=== PATIENT | female | born 2000 | race Caucasian/White ===

== ENCOUNTER 2022-05-01 10:25 | Emergency (ER) | payer OTHER, MEDICAID ==
[~2022-05-01] VITALS: Ht 170 cm; Wt 99.0 kg
[2022-05-01 11:42] LABS: BASOPHILS % (AUTO) 0 % (0-10); EOSINOPHILS # (AUTO) 0.1 10^3/uL (0.0-0.3); EOSINOPHILS % (AUTO) 1 % (0-10); HEMATOCRIT 34 % (35-52); HEMOGLOBIN 11.5 g/dL (11.5-16.0); LYMPHOCYTES # (AUTO) 1.5 10^3/uL (1.0-4.0); LYMPHOCYTES % (AUTO) 15 % (12-44); MEAN CORPUSCULAR HEMOGLOBIN 29 pg (25-34); MEAN CORPUSCULAR HGB CONC 34 g/dL (32-36); MEAN CORPUSCULAR VOLUME 85 fL (80-99); MEAN PLATELET VOLUME 11.1 fL (9.0-12.2); MONOCYTES # (AUTO) 0.7 10^3/uL (0.0-1.0); MONOCYTES % (AUTO) 7 % (0-12); NEUTROPHILS # (AUTO) 7.3 10^3/uL (1.8-7.8); NEUTROPHILS % (AUTO) 75 % (42-75); PLATELET COUNT 216 10^3/uL (130-400); WHITE BLOOD COUNT 9.7 10^3/uL (4.3-11.0)
--- NOTE | 2022-05-01 11:44 | ED Syncope ---
General Chief Complaint: OB > 20 WEEKS Stated Complaint: DIZZY - BLURRY VISION - HOT FLASHES - 27 WKS PREG Source of Information: Patient Exam Limitations: No Limitations History of Present Illness Date Seen by Provider: May 01, 2022 Time Seen by Provider: 11:20 Initial Comments Patient to the ER by private conveyance from [employer] where she works on her feet. She is [address] Cedeno in [place]. She says she was standing there working and all of a sudden she felt a series of hot flashes, on and so she sat down because she felt like she is going to pass out. She still feels a little short of breath even while at rest. Says she nearly passed out. She says this happened before when she was with her previous child. She is not having dysuria, cough, fevers chills diarrhea nausea vomiting chest pain. She does have a history of asthma but that has not been bothering her lately. Allergies and Home Medications Allergies Coded Allergies: No Known Drug Allergies (Unverified , 05/01/22) Patient Home Medication List Home Medication List Reviewed: Yes Review of Systems Constitutional: No chills; dizziness; No fever, No malaise EENTM: No ear discharge, No ear pain Respiratory: No cough; short of breath Cardiovascular: No chest pain Gastrointestinal: No abdominal pain, No constipation, No diarrhea Genitourinary: No discharge, No dysuria : Yes Control/STD Prophylaxis: None Musculoskeletal: No back pain, No joint pain All Other Systems Reviewed Negative Unless Noted: Yes Past Gijghxy-Zurxzs-Jyxkba Hx Patient Social History Tobacco Use?: No Use of E-Cig and/or Vaping dev: No Substance use?: No Alcohol Use?: No Immunizations Up To Date First/Initial COVID19 Vaccinat: 12/2020 Physical Exam Vital Signs Vital Signs - First Documented 05/01/22 05/01/22 05/01/22 11:29 12:32 13:56 Temp 36.6 Pulse 103 Resp 18 B/P (MAP) 106/66 (79) 110/67 (81) 98/65 (76) O2 Delivery Room Air Capillary Refill : Height, Weight, BMI Height: '" Weight: lbs. oz. kg; BMI Method: General Appearance: No Apparent Distress, WD/WN HEENT: PERRL/EOMI, Pharynx Normal, Moist Mucous Membranes Neck: Full Range of Motion, Normal Inspection, Non Tender Cardiovascular: Regular Rate, Rhythm, No Edema, Normal Peripheral Pulses Respiratory: Chest Non Tender, Lungs Clear, Normal Breath Sounds, No Accessory Muscle Use, No Respiratory Distress Gastrointestinal: Normal Bowel Sounds, Non Tender, Soft Extremities: Normal Capillary Refill, Normal Inspection, Normal Range of Motion, No Pedal Edema Neurologic/Psychiatric: Alert, Oriented x3, No Motor/Sensory Deficits, Normal Mood/Affect Cranial Nerves: Normal Hearing, Normal Speech, PERRL Progress/Results/Core Measures Results/Orders Lab Results Laboratory Tests Test 05/01/22 11:25 05/01/22 12:18 05/01/22 12:22 Range/Units White Blood Count 9.7 4.3-11.0 10^3/uL Red Blood Count 3.98 3.80-5.11 10^6/uL Hemoglobin 11.5 11.5-16.0 g/dL Hematocrit 34 L 35-52 % Mean Corpuscular Volume 85 80-99 fL Mean Corpuscular Hemoglobin 29 25-34 pg Mean Corpuscular Hemoglobin Concent 34 32-36 g/dL Red Cell Distribution Width 13.2 10.0-14.5 % Platelet Count 216 130-400 10^3/uL Mean Platelet Volume 11.1 9.0-12.2 fL Immature Granulocyte % (Auto) 2 % Neutrophils (%) (Auto) 75 42-75 % Lymphocytes (%) (Auto) 15 12-44 % Monocytes (%) (Auto) 7 0-12 % Eosinophils (%) (Auto) 1 0-10 % Basophils (%) (Auto) 0 0-10 % Neutrophils # (Auto) 7.3 1.8-7.8 10^3/uL Lymphocytes # (Auto) 1.5 1.0-4.0 10^3/uL Monocytes # (Auto) 0.7 0.0-1.0 10^3/uL Eosinophils # (Auto) 0.1 0.0-0.3 10^3/uL Basophils # (Auto) 0.0 0.0-0.1 10^3/uL Immature Granulocyte # (Auto) 0.2 H 0.0-0.1 10^3/uL Sodium Level 138 135-145 MMOL/L Potassium Level 3.9 3.6-5.0 MMOL/L Chloride Level 105 98-107 MMOL/L Carbon Dioxide Level 24 21-32 MMOL/L Anion Gap 9 5-14 MMOL/L Blood Urea Nitrogen 11 7-18 MG/DL Creatinine 0.60 0.60-1.30 MG/DL Estimat Glomerular Filtration Rate 129 BUN/Creatinine Ratio 18 Glucose Level 92 70-105 MG/DL Calcium Level 9.2 8.5-10.1 MG/DL Corrected Calcium 9.5 8.5-10.1 MG/DL Total Bilirubin 0.2 0.1-1.0 MG/DL Aspartate Amino Transf (AST/SGOT) 10 5-34 U/L Alanine Aminotransferase (ALT/SGPT) 13 0-55 U/L Alkaline Phosphatase 59 40-136 U/L Troponin I < 0.028 <0.028 NG/ML Total Protein 6.8 6.4-8.2 GM/DL Albumin 3.6 3.2-4.5 GM/DL Urine Color YELLOW Urine Clarity CLEAR Urine pH 6.0 5-9 Urine Specific [place] >=1.030 1.016-1.022 Urine Protein TRACE H NEGATIVE Urine Glucose (UA) NEGATIVE NEGATIVE Urine Ketones NEGATIVE NEGATIVE Urine Nitrite NEGATIVE NEGATIVE Urine Bilirubin NEGATIVE NEGATIVE Urine Urobilinogen 1.0 < = 1.0 MG/DL Urine Leukocyte Esterase 2+ H NEGATIVE Urine RBC (Auto) NEGATIVE NEGATIVE Urine RBC NONE /HPF Urine WBC 10-25 H /HPF Urine Squamous Epithelial Cells 10-25 H /HPF Urine Crystals PRESENT H /LPF Urine Calcium Oxalate Crystals FEW H /LPF Urine Bacteria LARGE H /HPF Urine Casts NONE /LPF Urine Mucus MODERATE H /LPF Urine Culture Indicated YES Glucometer 80 70-110 MG/DL My Orders Orders - KATIE,VICKI J Orthostatic Vital Signs (Adult (05/01/22 11:32) Cbc With Automated Diff (05/01/22 11:32) Comprehensive Metabolic Panel (05/01/22 11:32) Ua Culture If Indicated (05/01/22 11:32) Continuous Ekg Monitoring (05/01/22 11:32) Ekg Tracing (05/01/22 11:32) Accucheck Stat ONCE (05/01/22 11:32) Troponin I Agustin (05/01/22 11:44) Ed Iv/Invasive Line Start (05/01/22 12:40) Lactated Ringers (Lr 1000 Ml Iv Solution (05/01/22 12:45) Urine Culture (05/01/22 12:18) Medications Given in ED Current Medications Medications Dose Ordered Sig/Kaden Route Start Time Stop Time Status Last Admin Dose Admin Lactated Ringer's 1,000 ml @ 0 mls/hr Q0M ONCE IV 05/01/22 12:45 05/01/22 12:46 DC 05/01/22 12:48 999 MLS/HR Vital Signs/I&O 05/01/22 05/01/22 05/01/22 11:29 12:32 13:56 Temp 36.6 36.3 Pulse 103 102 85 101 117 Resp 18 18 B/P (MAP) 106/66 (79) 107/64 110/67 (81) 98/65 (76) O2 Delivery Room Air Progress Progress Note #1: Time: 11:44 Progress Note Well-appearing, likely vasovagal syncope/near syncope. Going to check some labs. She is drinking fluids by mouth. Check some urine and do some orthostats and EKG. Progress Note #2: Time: 13:15 Progress Note Contaminated urine. Borderline orthostats so we started a liter of fluids. Left voicemail with Dr. Krishnamurthy, OB. Initial ECG Impression Date: May 01, 2022 Initial ECG Impression Time: 12:26 Initial ECG Rate: 97 Initial ECG Rhythm: Normal Sinus Initial ECG Intervals: Normal Initial ECG Impression: Normal Initial ECG Comparisson: No Previous ECG Available Comment Normal sinus rhythm without clinically relevant ST elevation or depression. Consults : Consulting Physician: LEAH RAYGOZA MD Consults Notes Discussed case with Dr. Raygoza who agrees to take her up and monitor her on third floor. Assuming she sees a good category 1 strip then she can go home and follow-up outpatient. Departure Impression Primary Impression: Vasovagal syncope Additional Impression: Dehydration Disposition: 01 HOME, SELF-CARE Condition: Stable Departure-Patient Inst. Decision time for Depature: 13:18 Referrals: [facility] (PCP/Family) Primary Care Physician Patient Instructions: Syncope (Fainting) (DC), Vasovagal Response (DC) Add. Discharge Instructions: Make sure you are drinking plenty of fluids. Follow-up with your OB provider. All discharge instructions reviewed with patient and/or family. Voiced understanding. Work/School Note: Work Release Form Date Seen in the Emergency Department: May 01, 2022 Return to Work: May 02, 2022 Restrictions: No Restrictions VICKI WILSON May 01, 2022 11:44
[2022-05-01 12:02] LABS: ALBUMIN 3.6 GM/DL (3.2-4.5); BILIRUBIN,TOTAL 0.2 MG/DL (0.1-1.0); CALCIUM 9.2 MG/DL (8.5-10.1); CREATININE SERUM 0.6 MG/DL (0.60-1.30); POTASSIUM 3.9 MMOL/L (3.6-5.0); TOTAL PROTEIN 6.8 GM/DL (6.4-8.2)
[2022-05-01 12:25] LABS: BILIRUBIN,URINE NEGATIVE (NEGATIVE); CLARITY,URINE CLEAR; COLOR,URINE YELLOW; GLUCOSE, URINE (UA) NEGATIVE (NEGATIVE); KETONES,URINE NEGATIVE (NEGATIVE); LEUKOCYTE ESTERASE ,URINE 2+ (NEGATIVE); NITRITE,URINE NEGATIVE (NEGATIVE); PROTEIN,URINE TRACE (NEGATIVE)
[2022-05-01 12:32] VITALS: BP_SYST 106; BP_SYST 110; BP_SYST 98; BP_DIAS 65; BP_DIAS 66; BP_DIAS 67
[2022-05-01 12:41] LABS: BACTERIA,URINE LARGE /HPF; CALCIUM OXALATE CRYSTALS,UR FEW /LPF
[2022-05-01] MEDS ORDERED: LACTATED RINGERS 1,000 ML IV ONE (12:45)
[2022-05-01] MEDS ORDERED: PREN1TAB79 PO (15:35)
== END 2022-05-01 14:50 | disposition home or self-care (01) ==
LOC: ER 10:28
DX: O99.282 Endocrine, nutritional and metabolic diseases complicating pregnancy, second trimester (principal); E86.0 Dehydration; O26.892 Other specified pregnancy related conditions, second trimester; R55 Syncope and collapse; Z3A.27 27 weeks gestation of pregnancy
CPT/HCPCS: 36415; 80053; 81000; 82947; 84484; 85025; 87077; 87088; 93005

== ENCOUNTER 2022-05-01 15:21 | Outpatient (CLI) | payer OTHER, MEDICAID ==
[~2022-05-01] VITALS: Ht 167.6 cm; Wt 100.9 kg
[2022-05-01 15:10] VITALS: BP 108/52
[2022-05-01] MEDS ORDERED: PREN1TAB79 PO (15:35)
[2022-05-01 15:49] VITALS: BP 108/52
[2022-05-01 16:15] VITALS: BP 108/52
--- NOTE | 2022-05-02 08:31 | Physician Query-Final Dx ---
ABIOLA,05/02/2231: Clinic Account Progress/Dx Physician Query: Please give diagnosis Please include # weeks gestation Date of Service May 01, 2022 at 15:21 TATIANA SILVER MD 05/03/222047: Clinic Account Progress/Dx DIAGNOSIS: Diagnosis Third Trimester 27 week gestation ,NovMay 02, 2022 08:31 TATIANA SILVER MD May 03, 2022 20:48
== END 2022-05-01 16:15 | disposition home or self-care (01) ==
LOC: WSo 15:21
PROVIDERS: ATTEND Family Medicine
DX: Z34.92 Encounter for supervision of normal pregnancy, unspecified, second trimester (principal); Z3A.27 27 weeks gestation of pregnancy
CPT/HCPCS: 99212

== ENCOUNTER 2022-11-28 17:59 | Emergency (ER) | payer OTHER, MEDICAID ==
[~2022-11-28] VITALS: Ht 167 cm; Wt 97.5 kg
[~2022-11-28 17:59] MED LIST: PREN1TAB79 PO
[2022-11-28 18:45] LABS: BASOPHILS % (AUTO) 1 % (0-10); EOSINOPHILS # (AUTO) 0.3 10^3/uL (0.0-0.3); EOSINOPHILS % (AUTO) 3 % (0-10); HEMATOCRIT 40 % (35-52); HEMOGLOBIN 13.2 g/dL (11.5-16.0); LYMPHOCYTES # (AUTO) 2.9 10^3/uL (1.0-4.0); LYMPHOCYTES % (AUTO) 36 % (12-44); MEAN CORPUSCULAR HEMOGLOBIN 27 pg (25-34); MEAN CORPUSCULAR HGB CONC 33 g/dL (32-36); MEAN CORPUSCULAR VOLUME 81 fL (80-99); MEAN PLATELET VOLUME 10.9 fL (9.0-12.2); MONOCYTES # (AUTO) 0.6 10^3/uL (0.0-1.0); MONOCYTES % (AUTO) 8 % (0-12); NEUTROPHILS # (AUTO) 4.3 10^3/uL (1.8-7.8); NEUTROPHILS % (AUTO) 53 % (42-75); PLATELET COUNT 240 10^3/uL (130-400); WHITE BLOOD COUNT 8.2 10^3/uL (4.3-11.0)
[2022-11-28 18:57] LABS: ALBUMIN 4.4 GM/DL (3.2-4.5); BILIRUBIN,TOTAL 0.3 MG/DL (0.1-1.0); CALCIUM 9.4 MG/DL (8.5-10.1); CREATININE SERUM 0.8 MG/DL (0.60-1.30); POTASSIUM 3.5 MMOL/L (3.6-5.0)
[2022-11-28] MEDS ORDERED: IOHEXOL 350 MG/ML 100 ML (OMNIPAQUE 350) VIAL IV ONE (19:15)
[2022-11-28] MEDS ORDERED: HOLD METFORMIN - RECEIVED CONTRAST 20 ML VIAL IV SCH (19:15)
[2022-11-28] MEDS ORDERED: NS 100 ML (IVPB) BAG IV ONE (19:15)
[2022-11-28 19:25] LABS: BILIRUBIN,URINE NEGATIVE (NEGATIVE); CLARITY,URINE CLEAR; COLOR,URINE YELLOW; GLUCOSE, URINE (UA) NEGATIVE (NEGATIVE); KETONES,URINE NEGATIVE (NEGATIVE); LEUKOCYTE ESTERASE ,URINE TRACE (NEGATIVE); NITRITE,URINE NEGATIVE (NEGATIVE); PH,URINE 5.5 (5-9); PROTEIN,URINE NEGATIVE (NEGATIVE)
[2022-11-28 19:45] LABS: BACTERIA,URINE MODERATE /HPF
--- NOTE | 2022-11-28 19:51 | Diagnostic Imaging Report ---
PROCEDURE: CT abdomen and pelvis with contrast, rule out appendicitis. TECHNIQUE: Multiple contiguous axial images were obtained through the abdomen and pelvis after the administration of intravenous contrast. All CT scans use one or more of the following dose optimizing techniques: automated exposure control, MA and/or KvP adjustment based on patient size and exam type or iterative reconstruction. INDICATION: Abdominal pain COMPARISON: None available. FINDINGS: The visualized lung bases are clear. Diffusely decreased density of the liver. The liver is otherwise unremarkable. The spleen is unremarkable. Calcified granuloma within the left lower lobe. The adrenal glands are unremarkable. The pancreas is unremarkable. The gallbladder is unremarkable. Early excretion of contrast is noted within the bilateral kidneys. No hydroureteronephrosis. No aneurysmal dilatation of the abdominal aorta. Tiny fat-containing umbilical hernia. The appendix is unremarkable. Mild mural thickening of the urinary bladder, though the urinary bladder is not well-distended. The uterus and adnexal structures are unremarkable for age. No bowel obstruction or pneumatosis. No significant adenopathy, free air, or free fluid within the abdomen or pelvis. No acute osseous abnormality. IMPRESSION: Cystitis versus poor distention of the urinary bladder. Recommend correlation with urinary analysis. The appendix is unremarkable. Mild fatty infiltration of the liver. Dictated by: Dictated on workstation # [id number]
--- NOTE | 2022-11-28 20:08 | ED Abdominal Pain ---
General Chief Complaint: Abdominal/GI Problems Stated Complaint: ABD PAIN,SHAKINESS Nursing Triage Note: PT PRESENTS TO ED VIA POV FROM HOME WITH COMPLAINTS OF CENTRAL ADOMINAL PAIN X 4-5 DAYS. PT ALSO REPORTS CONGESTION AND DIARRHEA AND NAUSEA. Source of Information: Patient History of Present Illness Date Seen by Provider: Nov 28, 2022 Time Seen by Provider: 18:36 Initial Comments PT ARRIVES VIA POV FROM HOME C/O GENERALIZED ABDOMINAL PAIN THAT COMES AND GOES. PAIN IS NOT PRESENT NOW C/O DIARRHEA OFF AND ONE. HAD 1 EPISODE OF DIARRHEA THIS AM. NO BLACK/BLOODY/TARRY STOOLS MILD NAUSEA, NO VOMITING. NO NAUSEA NOW FEELS A LITTLE LIGHTHEADED AT TIMES, NOT NOW. 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 LMP 08/2022 PT DELIVERED 08/01/22 VIA , NO COMPLICATIONS STARTED ON OCP'S IN AUGUST AND IS PT IS NO CHRONIC MEDICAL PROBLEMS NO PRIOR ABDOMINAL SURGERIES OR GI OR PROBLEMS SYMPTOMS ARE NO DIFFERENT TODAY HAS NOT SOUGHT CARE UNTIL TODAY HAS NOT TAKEN ANYTHING FOR SYMPTOMS PCP: [facility] RIPSAW GRADER: KENYATTA FLORES Allergies and Home Medications Allergies Coded Allergies: No Known Drug Allergies (Unverified , 05/01/22) Patient Home Medication List Home Medication List Reviewed: Yes Ketorolac Tromethamine (Ketorolac Tromethamine) 10 Mg Tablet, 10 MG PO Q6H Prescribed by: MARY SEBASTIAN on 11/28/222013 Nitrofurantoin Monohyd/M-Cryst (Macrobid 100 mg Capsule) 100 Mg Capsule, 1 TAB PO BID Prescribed by: MARY SEBASTIAN on 11/28/222013 Ondansetron (Ondansetron Odt) 4 Mg Tab.rapdis, 4 MG PO Q4H Prescribed by: MARY SEBASTIAN on 11/28/222013 Vit W-Ca,Fe,FA(<1 mg) ( Vitamins) 27 Mg Iron-800 Mcg Tablet, 1 EACH PO DAILY, (Reported) Entered as Reported by: YANCY MELENDREZ on 05/01/22 1535 Review of Systems Review of Systems Constitutional: see HPI; No chills, No diaphoresis; dizziness; No fever EENTM: No Symptoms Reported Respiratory: No Symptoms Reported Cardiovascular: No Symptoms Reported Gastrointestinal: See HPI, Abdominal Pain, Diarrhea, Nausea; Denies Poor Appetite, Denies Vomiting Genitourinary: See HPI Musculoskeletal: no symptoms reported Skin: no symptoms reported Psychiatric/Neurological: No Symptoms Reported Endocrine: No Symptoms Reported Hematologic/Lymphatic: No Symptoms Reported Past Ffsquek-Dcqivo-Cnsrmb Hx Patient Social History Tobacco Use?: No Smokeless Tobacco Frequency: Never a User Use of E-Cig and/or Vaping dev: No Substance use?: No Alcohol Use?: Yes Alcohol Frequency: Rarely Pt feels they are or have been: No Immunizations Up To Date First/Initial COVID19 Vaccinat: 12/2020 Second COVID19 Vaccination Jean-Claude: 12/2020 Third COVID19 Vaccination Date: 12/2020 Past Medical History 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 oz. kg; 34.00 BMI Method: General Appearance: WD/WN, no apparent distress, obese, other (SITTING BULGARIAN- STYLE; WALKS UPRIGHT AND MOVES QUICKLY WITHOUT DIFFICULTY. DOES NOT APPEAR TO BE IN ANY DISCOMFORT OR DISTRESS. 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, no motor/sensory deficits, alert, normal mood/affect, oriented x 3 Skin: normal color, warm/dry, tattoos/piercings (MULTIPLE TATTOOS) Progress/Results/Core Measures Results/Orders Lab Results Laboratory Tests Test 11/28/22 18:32 11/28/22 19:15 Range/Units White Blood Count 8.2 4.3-11.0 10^3/uL Red Blood Count 4.86 3.80-5.11 10^6/uL Hemoglobin 13.2 11.5-16.0 g/dL Hematocrit 40 35-52 % Mean Corpuscular Volume 81 80-99 fL Mean Corpuscular Hemoglobin 27 25-34 pg Mean Corpuscular Hemoglobin Concent 33 32-36 g/dL Red Cell Distribution Width 12.6 10.0-14.5 % Platelet Count 240 130-400 10^3/uL Mean Platelet Volume 10.9 9.0-12.2 fL Immature Granulocyte % (Auto) 1 % Neutrophils (%) (Auto) 53 42-75 % Lymphocytes (%) (Auto) 36 12-44 % Monocytes (%) (Auto) 8 0-12 % Eosinophils (%) (Auto) 3 0-10 % Basophils (%) (Auto) 1 0-10 % Neutrophils # (Auto) 4.3 1.8-7.8 10^3/uL Lymphocytes # (Auto) 2.9 1.0-4.0 10^3/uL Monocytes # (Auto) 0.6 0.0-1.0 10^3/uL Eosinophils # (Auto) 0.3 0.0-0.3 10^3/uL Basophils # (Auto) 0.0 0.0-0.1 10^3/uL Immature Granulocyte # (Auto) 0.0 0.0-0.1 10^3/uL Sodium Level 142 135-145 MMOL/L Potassium Level 3.5 L 3.6-5.0 MMOL/L Chloride Level 109 H 98-107 MMOL/L Carbon Dioxide Level 23 21-32 MMOL/L Anion Gap 10 5-14 MMOL/L Blood Urea Nitrogen 18 7-18 MG/DL Creatinine 0.80 0.60-1.30 MG/DL Estimat Glomerular Filtration Rate 106 BUN/Creatinine Ratio 23 Glucose Level 95 70-105 MG/DL Calcium Level 9.4 8.5-10.1 MG/DL Corrected Calcium 9.1 8.5-10.1 MG/DL Total Bilirubin 0.3 0.1-1.0 MG/DL Aspartate Amino Transf (AST/SGOT) 18 5-34 U/L Alanine Aminotransferase (ALT/SGPT) 33 0-55 U/L Alkaline Phosphatase 81 40-136 U/L Total Protein 8.0 6.4-8.2 GM/DL Albumin 4.4 3.2-4.5 GM/DL Amylase Level 51 25-125 U/L Lipase 31 8-78 U/L Urine Color YELLOW Urine Clarity CLEAR Urine pH 5.5 5-9 Urine Specific [place] >=1.030 1.016-1.022 Urine Protein NEGATIVE NEGATIVE Urine Glucose (UA) NEGATIVE NEGATIVE Urine Ketones NEGATIVE NEGATIVE Urine Nitrite NEGATIVE NEGATIVE Urine Bilirubin NEGATIVE NEGATIVE Urine Urobilinogen 0.2 < = 1.0 MG/DL Urine Leukocyte Esterase TRACE H NEGATIVE Urine RBC (Auto) NEGATIVE NEGATIVE Urine RBC 2-5 H /HPF Urine WBC 5-10 H /HPF Urine Squamous Epithelial Cells 5-10 /HPF Urine Crystals NONE /LPF Urine Bacteria MODERATE H /HPF Urine Casts NONE /LPF Urine Mucus SMALL H /LPF Urine Culture Indicated YES My Orders Orders - MARY SEBASTIAN DO Ed Iv/Invasive Line Start (11/28/22 18:37) Urine Bedside (11/28/22 18:37) Amylase (11/28/22 18:37) Cbc With Automated Diff (11/28/22 18:37) Comprehensive Metabolic Panel (11/28/22 18:37) Lipase (11/28/22 18:37) Ua Culture If Indicated (11/28/22 18:37) Ct Abd/Pelv W (Appendicitis) (11/28/22 19:07) Iohexol Injection (Omnipaque 350 Mg/Ml 1 (11/28/22 19:15) Received Contrast (Hold Metformin- Contr (11/28/22 19:15) Ns (Ivpb) (Sodium Chloride 0.9% Ivpb Bag (11/28/22 19:15) Urine Culture (11/28/22 19:15) Ketorolac Injection (Toradol Injection) (11/28/22 20:15) Ceftriaxone 1 Gm Pre-Mix (Rocephin 1 Gm (11/28/22 20:15) Medications Given in ED Current Medications Medications Dose Ordered Sig/Kaden Route Start Time Stop Time Status Last Admin Dose Admin Ceftriaxone Sodium/Dextrose 50 ml @ 100 mls/hr ONCE ONCE IV 11/28/22 20:15 11/28/22 20:37 DC 11/28/22 20:26 100 MLS/HR Iohexol 100 ml ONCE ONCE IV 11/28/22 19:15 11/28/22 19:16 DC 11/28/22 19:32 80 ML Ketorolac Tromethamine 30 mg ONCE ONCE IVP 11/28/22 20:15 11/28/22 20:16 DC 11/28/22 20:25 30 MG Sodium Chloride 100 ml ONCE ONCE IV 11/28/22 19:15 11/28/22 19:16 DC 11/28/22 19:33 80 ML Vital Signs/I&O 11/28/22 11/28/22 18:09 20:29 Temp 36.7 Pulse 93 75 Resp 18 18 B/P (MAP) 124/78 (93) 122/84 Pulse Ox 96 99 Blood Pressure Mean: 93 Progress Progress Note : Progress Note UNEVENTFUL ER STAY PT HAD NO SYMPTOMS DURING ER STAY VITALS STABLE. GIVEN TORADOL AND ROCEPHIN REVIEWED ALL TEST RESULTS, SYMPTOMATIC TREATMENT, ANTICIPATED COURSE, NEED FOR FOLLOW UP AND RETURN PRECAUTIONS DISCUSSED WITH PT. Diagnostic Imaging Comments CT ABDOMEN/PELVIS--PER RADIOLOGIST REPORT AT 2007 FINDINGS: The visualized lung bases are clear. Diffusely decreased density of the liver. The liver is otherwise unremarkable. The spleen is unremarkable. Calcified granuloma within the left lower lobe. The adrenal glands are unremarkable. The pancreas is unremarkable. The gallbladder is unremarkable. Early excretion of contrast is noted within the bilateral kidneys. No hydroureteronephrosis. No aneurysmal dilatation of the abdominal aorta. Tiny fat-containing umbilical hernia. The appendix is unremarkable. Mild mural thickening of the urinary bladder, though the urinary bladder is not well-distended. The uterus and adnexal structures are unremarkable for age. No bowel obstruction or pneumatosis. No significant adenopathy, free air, or free fluid within the abdomen or pelvis. No acute osseous abnormality. IMPRESSION: Cystitis versus poor distention of the urinary bladder. Recommend correlation with urinary analysis. The appendix is unremarkable. Mild fatty infiltration of the liver. Reviewed: Reviewed by Me Departure Impression Primary Impression: Urinary tract infection Disposition: HOME, SELF-CARE Condition: Stable Departure-Patient Inst. Decision time for Depature: 20:10 Referrals: [facility] (PCP/Family) Primary Care Physician Patient Instructions: Urinary Tract Infection, Adult (DC) Add. Discharge Instructions: HOME, REST LOTS OF CLEAR LIQUIDS--WATER, BROTH, JELLO, GATORADE TOMORROW IF YOU ARE BETTER, ADD BRATS DIET TO CLEAR LIQUIDS--BANANAS, RICE, APPLESAUCE,TOAST, SALTINES FOLLOW UP WITH YOUR DR IN 2-3 DAYS IF NO BETTER, RETURN TO ER IF WORSE All discharge instructions reviewed with patient and/or family. Voiced understanding. Scripts Ketorolac Tromethamine (Ketorolac Tromethamine) 10 Mg Tablet 10 MG PO Q6H for Pain, #15 TAB Prov: MARY SEBASTIAN DO 11/28/22 Ondansetron (Ondansetron Odt) 4 Mg Tab.rapdis 4 MG PO Q4H for Nausea/Vomiting, #10 TAB Prov: MARY SEBASTIAN DO 11/28/22 Nitrofurantoin Monohyd/M-Cryst (Macrobid 100 mg Capsule) 100 Mg Capsule 1 TAB PO BID, #20 CAP Prov: MARY SEBASTIAN DO 11/28/22 MARY SEBASTIAN DO Nov 28, 2022 20:08
[2022-11-28] MEDS ORDERED: NITR-65 PO (20:14)
[2022-11-28] MEDS ORDERED: ONDA4TAB11 PO (20:14)
[2022-11-28] MEDS ORDERED: KETO10TA PO (20:14)
[2022-11-28] MEDS ORDERED: cefTRIAXone 1 GM PRE-MIX 50 ML IV ONE (20:15)
[2022-11-28] MEDS ORDERED: KETOROLAC 30 MG/ML VIAL IVP ONE (20:15)
[2022-11-28 20:29] VITALS: BP 122/84
== END 2022-11-28 20:37 | disposition home or self-care (01) ==
LOC: EDUNIT# 17:59 → ER 18:01
DX: N39.0 Urinary tract infection, site not specified (principal); E66.9 Obesity, unspecified; Z68.34 Body mass index [BMI] 34.0-34.9, adult
CPT/HCPCS: 36415; 74177; 80053; 81000; 82150; 83690; 84703; 85025; 87077; 87088; 87186

== ENCOUNTER 2022-12-14 02:35 | Emergency (ER) | payer OTHER, MEDICAID ==
[~2022-12-14] VITALS: Ht 168 cm; Wt 95.0 kg
[~2022-12-14 02:35] MED LIST changes: +KETO10TA PO; +NITR-65 PO; +ONDA4TAB11 PO
[2022-12-14] MEDS ORDERED: DROS4TAB (02:58)
[2022-12-14 03:16] LABS: BILIRUBIN,URINE NEGATIVE (NEGATIVE); CLARITY,URINE SL CLOUDY; COLOR,URINE YELLOW; GLUCOSE, URINE (UA) NEGATIVE (NEGATIVE); KETONES,URINE NEGATIVE (NEGATIVE); LEUKOCYTE ESTERASE ,URINE NEGATIVE (NEGATIVE); NITRITE,URINE NEGATIVE (NEGATIVE); PH,URINE 5.5 (5-9); PROTEIN,URINE NEGATIVE (NEGATIVE)
[2022-12-14 03:35] LABS: BACTERIA,URINE TRACE /HPF; WBC,URINE RARE /HPF
[2022-12-14 03:37] LABS: AMPHETAMINE SCREEN, URINE NEGATIVE (NEGATIVE); BARBITURATE SCREEN URINE NEGATIVE (NEGATIVE); BENZODIAZEPINES SCREEN URINE NEGATIVE (NEGATIVE); CANNABINOID SCREEN, URINE NEGATIVE (NEGATIVE); COCAINE SCREEN URINE NEGATIVE (NEGATIVE); METHADONE STAT NEGATIVE (NEGATIVE); OPIATE SCREEN URINE NEGATIVE (NEGATIVE); OXYCODONE STAT NEGATIVE (NEGATIVE); PROPOXYPHENE STAT NEGATIVE (NEGATIVE); TRICYCLIC ANTIDEPRESSANTS SCRE NEGATIVE (NEGATIVE)
--- NOTE | 2022-12-14 03:41 | ED General ---
General Chief Complaint: Abdominal/GI Problems Stated Complaint: CP,UPPER ABD PAIN Nursing Triage Note: epigastric pain, abdominal pain, diarrhea, sore throat. Source of Information: Patient, Old Records History of Present Illness Date Seen by Provider: Dec 14, 2022 Time Seen by Provider: 02:54 Initial Comments PT ARRIVES VIA POV FROM HOME C/O EPIGASTRIC PAIN AND MID CHEST PAIN SINCE 1999 THIS EVENING 12/13/22 C/O NAUSEA, NO VOMITING. HAD DIARRHEA X 1 TODAY HAS HAD "COLD CHILLS" BUT HAS NOT CHECKED TEMPERATURE. NO URINARY SYMPTOMS SHE HAS NOT TAKEN ANYTHING FOR THESE SYMPTOMS SHE LAST ATE AT 1830--PIZZA. BOYFRIEND AND CHILD ATE SAME AND THEY ARE NOT ILL. SHE HAS ALSO HAD COLD SYMPTOMS SINCE LAST Saturday12/07/22 -COUGH WITH GREEN SPUTUM -NASAL CONGESTION AND SINUS DRAINAGE -TEMP OF 99 -SORE THROAT. HER CHILD HAS BEEN ILL WITH SAME THEY BOTH WENT TO [facility] ON SATURDAY AND BOTH WERE TESTED FOR STREP AND THEY WERE BOTH NEGATIVE. NO OTHER TESTS WERE DONE. PT STATES THEY WERE TOLD THEY "PROBABLY HAD THE FLU" BUT WERE NOT TESTED FOR IT OR COVID. NO RX'S WERE GIVEN SHE CONTINUES TO HAVE THOSE SYMPTOMS SHE HAS NOT TAKEN ANYTHING FOR THOSE SYMPTOMS SHE HAS HAD COVID VACCINE X 2--LAST ONE OVER A YEAR AGO SHE HAS HAD FLU VACCINE FOR THIS SEASON. PT DELIVERED 08/01/22M VIA , NO COMPLICATIONS. LMP 08/30/22. SHE IS AND ON OCP'S. PT WAS SEEN HERE 11/28/22 FOR THESE SAME COMPLAINTS, WORK UP INCLUDING LAB AND CT SCAN ONLY REVEALED UTI. SHE WAS GIVEN ROCEPHIN IN ER, AND SENT HOME WITH RX'S FOR TORADOL, ZOFRAN AND MACROBID SHE HAS NOT FOLLOWED UP WITH ANYONE SINCE THAT ER VISIT NO PRIOR ABDOMINAL SURGERIES, NO GI OR PROBLEMS NO CHRONIC MEDICAL PROBLEMS PCP; [facility] PATIENT APPOINTMENT COORDINATOR: KENYATTA FLORES Allergies and Home Medications Allergies Coded Allergies: No Known Drug Allergies (Unverified , 05/01/22) Patient Home Medication List Drospirenone (Slynd) 4 Mg (28) Tablet, (Reported) Entered as Reported by: ALEX DOUGLAS on 12/14/22 9840 Last Action: New Order Vit W-Ca,Fe,FA(<1 mg) ( Vitamins) 27 Mg Iron-800 Mcg Tablet, 1 EACH PO DAILY, (Reported) Entered as Reported by: YANCY MELENDREZ on 05/01/22 1775 Discontinued Medications Ketorolac Tromethamine (Ketorolac Tromethamine) 10 Mg Tablet, 10 MG PO Q6H Discontinued Reason: No Longer Taking Prescribed by: MARY SEBASTIAN on 11/28/222013 Last Action: Discontinued Nitrofurantoin Monohyd/M-Cryst (Macrobid 100 mg Capsule) 100 Mg Capsule, 1 TAB PO BID Discontinued Reason: No Longer Taking Prescribed by: MARY SEBASTIAN on 11/28/222013 Last Action: Discontinued Ondansetron (Ondansetron Odt) 4 Mg Tab.rapdis, 4 MG PO Q4H Discontinued Reason: No Longer Taking Prescribed by: MARY SEBASTIAN on 11/28/222013 Last Action: Discontinued Review of Systems Review of Systems Constitutional: see HPI EENTM: see HPI Respiratory: see HPI Cardiovascular: see HPI Gastrointestinal: see HPI Genitourinary: see HPI Musculoskeletal: no symptoms reported Skin: no symptoms reported Psychiatric/Neurological: No Symptoms Reported Hematologic/Lymphatic: No Symptoms Reported Immunological/Allergic: no symptoms reported Past Fbsmhnz-Lqscbt-Vdpmbt Hx Patient Social History Tobacco Use?: No Substance use?: No Alcohol Use?: No Pt feels they are or have been: No Immunizations Up To Date Influenza Vaccine Up-to-Date: Yes; Up-to-Date First/Initial COVID19 Vaccinat: 12/2020 Second COVID19 Vaccination Jean-Claude: 01/2021 Third COVID19 Vaccination Date: 12/2020 Past Medical History Surgery/Hospitalization HX: cleft palate/lip, multiple sx, bmt, t/a Surgeries: Yes (MULTIPLE SURGERIES FOR CLEFT LIP/PALATE; BMT'S; TONSILS 04/2022) Ear Surgery, Tonsillectomy Respiratory: No Cardiac: No Neurological: No : No Last Menstrual Period: Aug 30, 2022 Reproductive Disorders: No Female Reproductive Disorders: Denies Genitourinary: No Gastrointestinal: No Musculoskeletal: No Endocrine: No HEENT: Yes (CLEFT LIP/PALATE SURGERIES; BMT'S; TONSILLECTOMY 04/2022) Cancer: No Psychosocial: No Integumentary: No Blood Disorders: No Family Medical History SOCIAL HISTORY: -SMOKING--NEVER -ETOH--NEVER -DRUGS--NEVER PAST SURGICAL HISTORY: -MULTIPLE ORAL AND FACIAL SURGERIES FOR CLEFT LIP AND PALATE -MULTIPLE SETS OF BILATERAL MYRINGOTOMY TUBES -TONSILLECTOMY 04/2022 Physical Exam Vital Signs Vital Signs - First Documented 12/14/22 02:53 Temp 36.2 Pulse 84 Resp 16 B/P (MAP) 123/65 (84) Pulse Ox 99 O2 Delivery Room Air Capillary Refill : Less Than 3 Seconds Height, Weight, BMI Height: '" Weight: lbs. oz. kg; 33.00 BMI Method: General Appearance: No Apparent Distress, WD/WN, Other (DOES NOT APPEAR ILL OR TO BE IN ANY DISCOMFORT OR DISTRESS. WALKS UPRIGHT AND MOVES QUICKLY WITHOUT DIFFICULTY. ) HEENT: PERRL/EOMI, Moist Mucous Membranes, Pharyngeal Erythema, Other (TM'S SCLEROTIC, BUT NON-INFLAMED. NASAL CONGESTION AND CLEAR POST NASAL DRAINAGE. PHARYNX INFLAMED. NO SINUS TENDERNESS) Neck: Full Range of Motion, Normal Inspection, Non Tender, Supple Respiratory: Normal Breath Sounds, No Accessory Muscle Use, No Respiratory Distress, Other (DIFFUSE STERNAL TENDERNESS--PALPATION REPRODUCES PAIN ) Cardiovascular: Regular Rate, Rhythm, No Edema, No JVD, No Murmur, Normal Peripheral Pulses Gastrointestinal: Normal Bowel Sounds, No Organomegaly, No Pulsatile Mass, Soft; No Distended, No Guarding, No Hernia; Tenderness (VERY TENDER IN EPIGASTRIC AREA, PALPATION REPRODUCES PAIN ) Back: Normal Inspection, No CVA Tenderness, No Vertebral Tenderness Extremity: Normal Capillary Refill, Normal Inspection, Normal Range of Motion, Non Tender, No Calf Tenderness, No Pedal Edema Neurologic/Psychiatric: Alert, Oriented x3, No Motor/Sensory Deficits, Normal Mood/Affect, animal sticker II-XII Norm as Tested Skin: Normal Color, Warm/Dry; No Rash Progress/Results/Core Measures Suspected Sepsis SIRS Temperature: Pulse: 84 Respiratory Rate: 16 Laboratory Tests 12/14/22 03:11: White Blood Count 7.3 Blood Pressure 123 /65 Mean: 84 Laboratory Tests 12/14/22 03:11: Creatinine 0.73, Platelet Count 226, Total Bilirubin 0.2 Results/Orders Lab Results Laboratory Tests Test 12/14/22 03:05 12/14/22 03:11 Range/Units Urine Color YELLOW Urine Clarity SL CLOUDY Urine pH 5.5 5-9 Urine Specific Delta >=1.030 1.016-1.022 Urine Protein NEGATIVE NEGATIVE Urine Glucose (UA) NEGATIVE NEGATIVE Urine Ketones NEGATIVE NEGATIVE Urine Nitrite NEGATIVE NEGATIVE Urine Bilirubin NEGATIVE NEGATIVE Urine Urobilinogen 0.2 < = 1.0 MG/DL Urine Leukocyte Esterase NEGATIVE NEGATIVE Urine RBC (Auto) NEGATIVE NEGATIVE Urine RBC NONE /HPF Urine WBC RARE /HPF Urine Squamous Epithelial Cells 5-10 /HPF Urine Crystals NONE /LPF Urine Bacteria TRACE /HPF Urine Casts NONE /LPF Urine Mucus SMALL H /LPF Urine Culture Indicated NO Urine Opiates Screen NEGATIVE NEGATIVE Urine Oxycodone Screen NEGATIVE NEGATIVE Urine Methadone Screen NEGATIVE NEGATIVE Urine Propoxyphene Screen NEGATIVE NEGATIVE Urine Barbiturates Screen NEGATIVE NEGATIVE Ur Tricyclic Antidepressants Screen NEGATIVE NEGATIVE Urine Phencyclidine Screen NEGATIVE NEGATIVE Urine Amphetamines Screen NEGATIVE NEGATIVE Urine Methamphetamines Screen NEGATIVE NEGATIVE Urine Benzodiazepines Screen NEGATIVE NEGATIVE Urine Cocaine Screen NEGATIVE NEGATIVE Urine Cannabinoids Screen NEGATIVE NEGATIVE Influenza Type A (RT-PCR) Not Detected Not Detecte Influenza Type B (RT-PCR) Not Detected Not Detecte SARS-CoV-2 RNA (RT-PCR) Not Detected Not Detecte Group A Streptococcus Screen NEGATIVE NEGATIVE White Blood Count 7.3 4.3-11.0 10^3/uL Red Blood Count 4.65 3.80-5.11 10^6/uL Hemoglobin 12.7 11.5-16.0 g/dL Hematocrit 38 35-52 % Mean Corpuscular Volume 83 80-99 fL Mean Corpuscular Hemoglobin 27 25-34 pg Mean Corpuscular Hemoglobin Concent 33 32-36 g/dL Red Cell Distribution Width 12.7 10.0-14.5 % Platelet Count 226 130-400 10^3/uL Mean Platelet Volume 11.3 9.0-12.2 fL Immature Granulocyte % (Auto) 0 % Neutrophils (%) (Auto) 40 L 42-75 % Lymphocytes (%) (Auto) 48 H 12-44 % Monocytes (%) (Auto) 8 0-12 % Eosinophils (%) (Auto) 3 0-10 % Basophils (%) (Auto) 1 0-10 % Neutrophils # (Auto) 3.0 1.8-7.8 10^3/uL Lymphocytes # (Auto) 3.5 1.0-4.0 10^3/uL Monocytes # (Auto) 0.6 0.0-1.0 10^3/uL Eosinophils # (Auto) 0.2 0.0-0.3 10^3/uL Basophils # (Auto) 0.0 0.0-0.1 10^3/uL Immature Granulocyte # (Auto) 0.0 0.0-0.1 10^3/uL Sodium Level 138 135-145 MMOL/L Potassium Level 3.5 L 3.6-5.0 MMOL/L Chloride Level 107 98-107 MMOL/L Carbon Dioxide Level 20 L 21-32 MMOL/L Anion Gap 11 5-14 MMOL/L Blood Urea Nitrogen 18 7-18 MG/DL Creatinine 0.73 0.60-1.30 MG/DL Estimat Glomerular Filtration Rate 118 BUN/Creatinine Ratio 25 Glucose Level 87 70-105 MG/DL Calcium Level 9.4 8.5-10.1 MG/DL Corrected Calcium 9.2 8.5-10.1 MG/DL Total Bilirubin 0.2 0.1-1.0 MG/DL Aspartate Amino Transf (AST/SGOT) 20 5-34 U/L Alanine Aminotransferase (ALT/SGPT) 33 0-55 U/L Alkaline Phosphatase 80 40-136 U/L Total Protein 7.5 6.4-8.2 GM/DL Albumin 4.2 3.2-4.5 GM/DL Amylase Level 52 25-125 U/L Lipase 36 8-78 U/L Monoscreen NEGATIVE NEGATIVE My Orders Orders - MARY SEBASTIAN DO Drug Screen Stat (Urine) (12/14/22 02:54) Ua Culture If Indicated (12/14/22 02:54) Urine Bedside (12/14/22 02:54) Ekg Tracing (12/14/22 02:58) Monotest (12/14/22 03:04) Rapid Strep A Screen (12/14/22 03:04) Covid 19 Inhouse Test (12/14/22 03:04) Influenza A And B By Pcr (12/14/22 03:04) Isolation Central Supply Req (12/14/22 03:04) Ed Iv/Invasive Line Start (12/14/22 03:09) Ct [place] Chest/Noang Abd-Pelv W (12/14/22 03:16) Amylase (12/14/22 03:46) Cbc With Automated Diff (12/14/22 03:46) Comprehensive Metabolic Panel (12/14/22 03:46) Lipase (12/14/22 03:46) Pantoprazole Injection (Protonix Injecti (12/14/22 04:00) Ondansetron Injection (Zofran Injectio (12/14/22 04:00) Ketorolac Injection (Toradol Injection) (12/14/22 04:00) Iohexol Injection (Omnipaque 350 Mg/Ml 1 (12/14/22 04:00) Received Contrast (Hold Metformin- Contr (12/14/22 04:00) Ns (Ivpb) (Sodium Chloride 0.9% Ivpb Bag (12/14/22 04:00) Medications Given in ED Current Medications Medications Dose Ordered Sig/Kaden Route Start Time Stop Time Status Last Admin Dose Admin Iohexol 100 ml ONCE ONCE IV 12/14/22 04:00 12/14/22 04:01 DC 12/14/22 04:00 79 ML Ketorolac Tromethamine 30 mg ONCE ONCE IVP 12/14/22 04:00 12/14/22 04:01 DC 12/14/22 04:05 30 MG Ondansetron HCl 4 mg ONCE ONCE IVP 12/14/22 04:00 12/14/22 04:01 DC 12/14/22 04:06 4 MG Pantoprazole 40 mg ONCE ONCE IV 12/14/22 04:00 12/14/22 04:01 DC 12/14/22 04:05 40 MG Sodium Chloride 100 ml ONCE ONCE IV 12/14/22 04:00 12/14/22 04:01 DC 12/14/22 04:00 80 ML Vital Signs/I&O 12/14/22 02:53 Temp 36.2 Pulse 84 Resp 16 B/P (MAP) 123/65 (84) Pulse Ox 99 O2 Delivery Room Air Capillary Refill : Less Than 3 Seconds Blood Pressure Mean: 84 Progress Note : Progress Note COVID, FLU, STREP, AND MONO TESTS DONE AND ALL ARE NEGATIVE GIVEN: -IV FLUIDS -ZOFRAN -PROTONIX -TORADOL LAB IS ALL ESSENTIALLY, INCLUDING UA EKG IS NORMAL MUCH DELAY IN OBTAINING CT REPORT ECG Initial ECG Impression Date: Dec 14, 2022 Initial ECG Impression Time: 03:00 Initial ECG Rate: 69 Initial ECG Rhythm: Normal Sinus Initial ECG Impression: Normal Initial ECG Comparisson: Unchanged (UNCHANGED FROM 05/22/22) Comment INTERPRETED BY ME Diagnostic Imaging Comments CT ANGIOGRAM CHEST/ ABDOMEN-PELVIS--PER [facility] VIA FAX AT [id number] -NO ACUTE PROCESS Reviewed: Reviewed by Me Departure Impression Primary Impression: Chest wall pain Additional Impression: Epigastric abdominal pain Disposition: HOME, SELF-CARE Condition: Improved Departure-Patient Inst. Decision time for Depature: 05:54 Referrals: PENDING SALE TO [facility] (PCP/Family) Primary Care Physician Patient Instructions: Abdominal Pain, Adult ED, Chest Pain (DC) Add. Discharge Instructions: CLEAR LIQUIDS--WATER, BROTH, JELLO, GATORADE BRATS DIET--BANANAS, RICE, APPLESAUCE, TOAST, SALTINES FOLLOW UP WITH [facility] THIS WEEK FOR FURTHER CARE RETURN TO ER IF SYMPTOMS WORSEN. All discharge instructions reviewed with patient and/or family. Voiced understanding. Scripts Ondansetron (Ondansetron Odt) 4 Mg Tab.rapdis 4 MG PO Q4H for Nausea/Vomiting, #10 TAB Prov: MARY SEBASTIAN DO 12/14/22 Pantoprazole Sodium (Protonix) 40 Mg Tablet.dr 40 MG PO DAILY, #15 TAB Prov: MARY SEBASTIAN DO 12/14/22 MARY SEBASTIAN DO Dec 14, 2022 03:41
[2022-12-14 03:53] LABS: BASOPHILS % (AUTO) 1 % (0-10); EOSINOPHILS # (AUTO) 0.2 10^3/uL (0.0-0.3); EOSINOPHILS % (AUTO) 3 % (0-10); HEMATOCRIT 38 % (35-52); HEMOGLOBIN 12.7 g/dL (11.5-16.0); LYMPHOCYTES # (AUTO) 3.5 10^3/uL (1.0-4.0); LYMPHOCYTES % (AUTO) 48 % (12-44); MEAN CORPUSCULAR HEMOGLOBIN 27 pg (25-34); MEAN CORPUSCULAR HGB CONC 33 g/dL (32-36); MEAN CORPUSCULAR VOLUME 83 fL (80-99); MEAN PLATELET VOLUME 11.3 fL (9.0-12.2); MONOCYTES # (AUTO) 0.6 10^3/uL (0.0-1.0); MONOCYTES % (AUTO) 8 % (0-12); NEUTROPHILS % (AUTO) 40 % (42-75); PLATELET COUNT 226 10^3/uL (130-400); WHITE BLOOD COUNT 7.3 10^3/uL (4.3-11.0)
[2022-12-14 03:57] LABS: ALBUMIN 4.2 GM/DL (3.2-4.5); POTASSIUM 3.5 MMOL/L (3.6-5.0)
[2022-12-14 03:59] LABS: CALCIUM 9.4 MG/DL (8.5-10.1)
[2022-12-14 04:00] LABS: TOTAL PROTEIN 7.5 GM/DL (6.4-8.2)
[2022-12-14] MEDS ORDERED: HOLD METFORMIN - RECEIVED CONTRAST 20 ML VIAL IV SCH (04:00)
[2022-12-14] MEDS ORDERED: KETOROLAC 30 MG/ML VIAL IVP ONE (04:00)
[2022-12-14] MEDS ORDERED: NS 100 ML (IVPB) BAG IV ONE (04:00)
[2022-12-14] MEDS ORDERED: PANTOPRAZOLE 40 MG (PROTONIX) VIAL IV ONE (04:00)
[2022-12-14] MEDS ORDERED: ONDANSETRON 4 MG/2 ML (SDV) Z0FRAN IVP ONE (04:00)
[2022-12-14] MEDS ORDERED: IOHEXOL 350 MG/ML 100 ML (OMNIPAQUE 350) VIAL IV ONE (04:00)
[2022-12-14 04:01] LABS: BILIRUBIN,TOTAL 0.2 MG/DL (0.1-1.0)
[2022-12-14 04:03] LABS: CREATININE SERUM 0.73 MG/DL (0.60-1.30)
[2022-12-14] MEDS ORDERED: ONDA4TAB11 PO (05:56)
[2022-12-14] MEDS ORDERED: PANT40TA2 PO (05:56)
[2022-12-14 06:01] VITALS: BP 121/95
--- NOTE | 2022-12-14 06:31 | Diagnostic Imaging Report ---
INDICATION: Chest pain, abdominal pain, 3 months . CTA chest, abdomen and pelvis Thin axial sections through the chest, abdomen and pelvis are obtained following intravenous contrast bolus. Multiplanar MIP images were reconstructed and reviewed. All CT scans use one or more of the following dose optimizing techniques: automated exposure control, MA and/or KvP adjustment based on patient size and exam type or iterative reconstruction. CORRELATION STUDY: CT abdomen and pelvis 11/28/2022 FINDINGS: CTA CHEST: Heart size normal. Thoracic aorta unremarkable. There is suboptimal contrast bolus timing of the pulmonary arteries. Given limitations, definitive pulmonary embolism was not suggested. No pathologic enlarged mediastinal lymph nodes. Lung rosa clear. Calcified granuloma left lower lobe. No effusion or pneumothorax. Osseous structures are unremarkable. CT ABDOMEN and PELVIS: Liver, spleen, pancreas, gallbladder, adrenal glands and kidneys demonstrate no acute findings. Abdominal aorta normal in contour. A few shotty aortocaval lymph node. Gastrointestinal tract without obstruction or inflammation. Normal appendix. No significant ascites. Urinary bladder decompressed, likely accounting for wall thickening. Uterus and adnexa unremarkable. Osseous structures demonstrate no acute findings. IMPRESSION: CTA CHEST: 1. No CT evidence for acute aortic syndrome or definitive pulmonary embolism. However, there are limitations for assessment of pulmonary arteries. Negative for acute abnormality of the chest. CT ABDOMEN and PELVIS: 1. Very questionable wall thickening urinary bladder, likely owing to its decompressed state. Clinical correlation for cystitis. 2. Otherwise, negative for acute abnormality about the abdomen and/or pelvis. Dictated by: Dictated on workstation # [id number]
== END 2022-12-14 06:03 | disposition home or self-care (01) ==
LOC: EDUNIT# 02:35 → ER 02:38
DX: R07.89 Other chest pain (principal); R10.13 Epigastric pain; Z20.822 Contact with and (suspected) exposure to COVID-19
CPT/HCPCS: 36415; 71275; 74177; 80053; 80306; 81000; 82150; 83690; 84703; 85025; 86308; 87430; 87636; 93005